=== PATIENT | male | born 1960 | race Caucasian/White ===

== ENCOUNTER 2022-02-11 10:24 | Emergency (ER) | payer OTHER, SELFPAY ==
[2022-02-11 10:36] VITALS: BP 140/82; PULSE 82; RESP 18; TEMP 36.9; O2SAT 97; BMI 30.5
--- NOTE | 2022-02-11 10:44 | XR_ITS ---
WS: [id number] XR hand LT 2V [id number] REASON FOR EXAM: foreign bodies FINDINGS: Multiple submillimeter foreign bodies clustered near the metacarpal phalangeal joint of the thumb brandin sest to the anterolateral skin surface. 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 XR/XR hand LT 2V [id number] IMPRESSION: Soft tissue foreign bodies with no acute bony or joint abnormality.
--- NOTE | 2022-02-11 11:04 | W.ED.UPPEXIN ---
Documented by User: PATTIE Lindsey 02/11/22 12:23 HPI - Extremity Injury (Upper) General: Chief Complaint: Trauma Stated Complaint: Metal in L hand Time Seen by Provider: 02/11/22 11:01 Source: patient Mode of arrival: ambulatory Limitations: no limitations History of Present Illness: Patient is a nice 61-year-old male who presents to ED today for evaluation of a left hand injury that occurred while at work. This is a workers comp injury. 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 Last tetanus unknown. He has not noticed any redness or swelling. Pain is minimal at this time. He maintains full range of motion of all digits. Sensory intact. MD complaint: injury to: left and hand Onset (ago): hour(s) Other Extremity Injury: Left: hand Other injuries: none Place: work Severity: mild Relieving factors: none Exacerbating factors: none Associated symptoms: Reports no associated symptoms; Denies weakness in extremities Review of Systems Musc: Reports: extremity pain (L hand) Neuro: Denies: numbness in extremities, weakness in extremities or sensory changes Physical Exam Const: COMMON NORMALS: no acute distress, average body habitus, patient oriented x3, no limitations, healthy appearing, alert and well nourished Extremity: COMMON NORMALS: full ROM, capillary refill normal and no clubbing, cyanosis or edema LEFT UPPER EXTREMITY: Yes hand & digits OTHER: pt has no swelling, redness or dec ROM; sensory intact; pulses/cap refill normal; pain is minimal at this time Hand Left Front: 1. countless tiny (less than 1mm) metallic foreign bodies present that appear very superficial and many of them are easily flaked off but some are embedded Neuro: COMMON NORMALS: patient oriented x3 SENSORIUM/ORIENTATION: Yes alert Course Vital Signs: Vital signs: Vital Signs Temperature 98.5 F 02/11/22 10:36 Pulse Rate 82 02/11/22 10:36 Respiratory Rate 18 02/11/22 10:36 Blood Pressure 140/82 02/11/22 10:36 Pulse Oximetry 97 02/11/22 10:36 MDM - Extremity Injury (Upper) Medical Decision Making Tetanus updated. Hand was soaked and area was gently exfoliated removing as many metallic foreign bodies as possible. Patient has no evidence for neurovascular compromise/compartment syndrome-there was no injection/puncture injury. At this time he will be placed on antibiotics and we will have him follow-up with Worker's Comp. Case discussed with Dr. Wilcox who agrees with plan/assessment. Lab Data Radiology Impressions Hand X-Ray 02/11/22 10:44 IMPRESSION: Soft tissue foreign bodies with no acute bony or joint abnormality. Discharge Plan Discharge Patient Disposition: Home Clinical Impression: Metal foreign body in left hand Condition: Stable Prescriptions: New amoxicillin-pot clavulanate 875-125 mg tablet 1 tab PO BID Qty: 14 0RF Discharge Orders: Discharge ED (Routine); Ordered 02/11/22 Ordered By: Lorena Hull Activity Restrictions/Additional Instructions: As we discussed you may gently cleanse and exfoliate area to help remove particles. Fill and begin your antibiotics immediately. You need to follow-up with Worker's Comp as directed. Return to the emergency department for significant pain, swelling, redness, drainage, red streaking up your arm, inability to flex, extend your thumb, or any other concerns you may have. Coding Level of Care Code ED Private Investigator for Chg Fwd Exam Expanded Problem Focused Documented by User: Karl Wilcox DO 02/11/22 16:47 HPI - Extremity Injury (Upper) General: Chief Complaint: Trauma Stated Complaint: Metal in L hand Time Seen by Provider: 02/11/22 11:01 Physical Exam Extremity: Hand Left Front: 1. countless tiny (less than 1mm) metallic foreign bodies present that appear very superficial and many of them are easily flaked off but some are embedded Course Vital Signs: Vital signs: Vital Signs Temperature 98.5 F 02/11/22 10:36 Pulse Rate 82 02/11/22 10:36 Respiratory Rate 18 02/11/22 10:36 Blood Pressure 140/82 02/11/22 10:36 Pulse Oximetry 97 02/11/22 10:36 MDM - Extremity Injury (Upper) Medical Decision Making Tetanus updated. Hand was soaked and area was gently exfoliated removing as many metallic foreign bodies as possible. Patient has no evidence for neurovascular compromise/compartment syndrome-there was no injection/puncture injury. At this time he will be placed on antibiotics and we will have him follow-up with Worker's Comp. Case discussed with Dr. Wilcox who agrees with plan/assessment. Chart reviewed and patient discussed with midlevel. Agree with assessment and plan. Lab Data Radiology Impressions Hand X-Ray 02/11/22 10:44 IMPRESSION: Soft tissue foreign bodies with no acute bony or joint abnormality. Discharge Plan Discharge Patient Disposition: Home Clinical Impression: Metal foreign body in left hand Condition: Stable Prescriptions: New amoxicillin-pot clavulanate 875-125 mg tablet 1 tab PO BID Qty: 14 0RF Discharge Orders: Discharge ED (Routine); Ordered 02/11/22 Ordered By: Lorena Hull Activity Restrictions/Additional Instructions: As we discussed you may gently cleanse and exfoliate area to help remove particles. Fill and begin your antibiotics immediately. You need to follow-up with Worker's Comp as directed. Return to the emergency department for significant pain, swelling, redness, drainage, red streaking up your arm, inability to flex, extend your thumb, or any other concerns you may have. Coding Level of Care Code ED Private Investigator for [place] Fwd Exam Expanded Problem Focused
[2022-02-11] MEDS: tetanus-diphtheria tox (adult) 0.5 mL SDV IM (11:37)
== END 2022-02-11 12:25 | disposition home or self-care (01) ==
PROVIDERS: Emergency Provider Physician Assistant
DX: M79.5 Residual foreign body in soft tissue (principal); Z23 Encounter for immunization
CPT/HCPCS: 73120; 90471; 90714; 99283; A6446